=== PATIENT | male | born 1975 | race Caucasian/White ===

== ENCOUNTER 2017-05-20 19:53 | Inpatient (IN) | payer MEDICARE, MEDICAID ==
[~2017-05-20] VITALS: Ht 180.3 cm; Wt 180.2 kg
[~2017-05-20 19:53] MED LIST: CHOLESTEROL MED; GABA300C3 PO; INSULIN; LIDO5DIS35 TD; OXYC5 PO; VALA1TAB PO
[2017-05-20] MEDS ORDERED: IOHEXOL 350 MG/ML 10 ML VIAL (for RAD DIAG) IVCONTRAST ONE (19:54)
[2017-05-20 19:57] VITALS: BP 159/103; PULSE 122; RESP 22; TEMP 98.2; O2SAT 94
[2017-05-20] MEDS ORDERED: LANTINJ SQ (20:07)
--- NOTE | 2017-05-20 20:22 | PD ---
HPI Chief Complaint: Diabetic Time Seen by Provider: 20:15 Travel History International Travel<30 days: No Contact w/Intl Traveler<30days: No Traveled to known affect area: No History of Present Illness HPI Patient 42-year-old male presents emergency department for evaluation of shortness of breath over the past 4 days which rapidly worsened tonight. Patient has no history of blood clots in his legs or his chest, is a diabetic and smoker. 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 Patient states he is fine as long as he sits down but anytime he gets up he starts becoming significant short of breath. No chest pain no fevers no cough no congestion. Symptoms have rapidly worsened and are severe. PFSH Past Medical History Hx Anticoagulant Therapy: No Cardiovascular Problems: Yes (CHOL) High Cholesterol: Yes Diabetes: Yes (type 1 ) Patient Takes Glucophage: No Medical other: Yes (sleep apnea, varicose veins ) Tetanus Vaccination: Unknown Influenza Vaccination: No Past Surgical History Appendectomy: Yes (2001) Social History Alcohol Use: Yes (rarely ) Tobacco Use: No (quit 2 months ago ) Substance Use: No Allergies-Medications (Allergen,Severity, Reaction): Coded Allergies: amoxicillin (Unverified Allergy, Intermediate, Hives, 05/20/17) Reported Meds & Prescriptions Reported Meds & Active Scripts Active Reported Lantus Solostar Pen Inj (Insulin Glargine) 300 Unit/3 Ml Pen 1 Units SQ Review of Systems Except as stated in HPI: all other systems reviewed are Neg Physical Exam Narrative GENERAL: Well-developed, morbidly obese male who is tachycardic and tachypneic with increased work of breathing. SKIN: Focused skin assessment warm/dry. HEAD: Atraumatic. Normocephalic. EYES: Pupils equal and round. No scleral icterus. No injection or drainage. ENT: No nasal bleeding or discharge. Mucous membranes pink and moist. NECK: Trachea midline. No JVD. CARDIOVASCULAR: Regular rhythm with tachycardia. No murmur appreciated. RESPIRATORY: No accessory muscle use. Clear to auscultation. Breath sounds equal bilaterally. Tachypneic. GASTROINTESTINAL: Abdomen soft, non-tender, nondistended. Hepatic and splenic margins not palpable. MUSCULOSKELETAL: No obvious deformities. No clubbing. No cyanosis. No edema. NEUROLOGICAL: Awake and alert. No obvious cranial nerve deficits. Motor grossly within normal limits. Normal speech. PSYCHIATRIC: Appropriate mood and affect; insight and judgment normal. Data Data Last Documented VS Vital Signs Date Time Temp Pulse Resp B/P (MAP) Pulse Ox O2 Delivery O2 Flow Rate FiO2 05/20/17 21:28 98 Nasal Cannula 2.00 05/20/17 20:58 20 05/20/17 19:57 98.2 122 159/103 (121) Orders Orders Electrocardiogram (05/20/17 20:19) Ckmb (Isoenzyme) Profile (05/20/17 20:19) Complete Blood Count With Diff (05/20/17 20:19) Comprehensive Metabolic Panel (05/20/17 20:19) D-Dimer (05/20/17 20:19) Magnesium (Mg) (05/20/17 20:19) Prothrombin Time / Inr (Pt) (05/20/17 20:19) Act Partial Throm Time (Ptt) (05/20/17 20:19) Troponin I (05/20/17 20:19) Chest, Single Ap (05/20/17 20:19) Ecg Monitoring (05/20/17 20:19) Iv Access Insert/Monitor (05/20/17 20:19) Oximetry (05/20/17 20:19) Oxygen Administration (05/20/17 20:19) Sodium Chloride 0.9% Flush (Ns Flush) (05/20/17 20:30) Sodium Chlorid 0.9% 500 Ml Inj (Ns 500 M (05/20/17 20:30) Blood Gas Venous (Vbg) (05/20/17 20:19) Bedside Glucose JOHANNE.CSUGAR (05/20/17 20:19) CKMB (05/20/17 20:23) CKMB% (05/20/17 20:23) Aspirin Chew (Aspirin Chew) (05/20/17 21:15) Ct Pulmonary Angiogram (05/20/17 ) Heparin Inj (Heparin Inj) (05/20/17 21:15) Heparin-D5w 25,000 U/250 Ml (Heparin-D5w (05/20/17 21:15) Cbc No Diff, Includes Plts (05/23/17 06:00) Act Partial Throm Time (Ptt) (05/21/17 04:07) Occult Blood (Hemoccult) Stool (05/20/17 21:07) Iohexol 350 Inj (Omnipaque 350 Inj) (05/20/17 19:54) Alteplase Inj (Activase Inj) (05/20/17 22:00) Cbc No Diff, Includes Plts (05/21/17 05:00) Cbc No Diff, Includes Plts (05/22/17 05:00) Cbc No Diff, Includes Plts (05/23/17 05:00) Cbc No Diff, Includes Plts (05/24/17 05:00) Cbc No Diff, Includes Plts (05/25/17 05:00) Cbc No Diff, Includes Plts (05/26/17 05:00) Cbc No Diff, Includes Plts (05/27/17 05:00) Basic Metabolic Panel (Bmp) (05/21/17 05:00) Basic Metabolic Panel (Bmp) (05/22/17 05:00) Basic Metabolic Panel (Bmp) (05/23/17 05:00) Basic Metabolic Panel (Bmp) (05/24/17 05:00) Basic Metabolic Panel (Bmp) (05/25/17 05:00) Basic Metabolic Panel (Bmp) (05/26/17 05:00) Basic Metabolic Panel (Bmp) (05/27/17 05:00) Magnesium Oxide (Mag-Ox) (05/20/17 22:00) Magnesium Sulfate Inj (Magnesium Sulfate (05/20/17 22:00) Magnesium Sulfate Inj (Magnesium Sulfate (05/20/17 22:00) Potassium Chlor 20 Meq Premix (Kcl 20 Me (05/20/17 22:00) Potassium Chlor 20 Meq Premix (Kcl 20 Me (05/20/17 22:00) Potassium Chlor 40 Meq Premix (Kcl 40 Me (05/20/17 22:00) Potassium Chlor 40 Meq Premix (Kcl 40 Me (05/20/17 22:00) Potassium Phosphate (K-Phos) (05/20/17 22:00) Potassium Phosphate (K-Phos) (05/20/17 22:00) Potassium Phosphate Inj (Potassium Phosp (05/20/17 22:00) Sodium Phosphate Inj (Sodium Phosphate I (05/20/17 22:00) ^ Medication Admin Instruction (05/20/17 21:49) Notify Dr: Other (05/20/17 21:49) Inpatient Certification (05/20/17 21:49) Resp Ezpap/Pep Therapy (05/20/17 21:49) Resp Acapella/Pep/Chest Vibra (05/20/17 21:49) Resp Incentive Spirometry (05/20/17 21:49) Bedside Glucose JOHANNE.Q6H (05/20/17 21:49) Blood Glucose Goal (Criteria) (05/20/17 21:49) Hypoglycemia 51 - 69 Mg/Dl (05/20/17 21:49) Hypoglycemia 50 Mg/Dl Or < (05/20/17 21:49) Notify Dr: Other (05/20/17 21:49) Dextrose 50% In Libra (Vial) Inj (D50w (Vi (05/20/17 22:00) Insulin Human Reg Supp Scale (Novolin R (05/21/17 00:00) Neuro Checks JOHANNE.Q1H (05/20/17 21:49) Albuterol-Ipratropium Neb (Duoneb Neb) (05/20/17 22:00) Albuterol-Ipratropium Neb (Duoneb Neb) (05/20/17 22:00) Code Status (05/20/17 21:49) Vital Signs (Adult) JOHANNE.Q1H (05/20/17 21:49) Activity Bed Rest (05/20/17 21:49) Elevate Head Of Bed (05/20/17 21:49) Diet Heart Healthy (05/21/17 Breakfast) Famotidine Inj (Pepcid Inj) (05/21/17 09:00) Ondansetron Inj (Zofran Inj) (05/20/17 22:00) Troponin I (05/21/17 03:00) Troponin I (05/21/17 09:00) Troponin I (05/21/17 15:00) Echo 2d Comp With Doppler (05/20/17 21:49) Scd Bilateral/Knee High JOHANNE.BID (05/20/17 21:49) Pharmacologic Contraindication (05/20/17 21:49) ^ Initiate Protocol (05/20/17 21:49) Instruction (05/20/17 21:49) Misc Nursing Information (05/20/17 22:00) Chlorhexidine 2% Cloth (Chlorhexidine 2% (05/21/17 04:00) Chlorhexidine 2% Cloth (Chlorhexidine 2% (05/20/17 22:00) Mrsa Pcr Surveillance (05/20/17 21:49) Docusate Sodium-Senna (Rukhsana-Colace) (05/21/17 09:00) Admit Order (Ed Use Only) (05/20/17 ) Labs Laboratory Tests Test 05/20/17 20:23 05/20/17 20:30 White Blood Count 16.2 TH/MM3 Red Blood Count 5.68 MIL/MM3 Hemoglobin 15.4 GM/DL Hematocrit 47.0 % Mean Corpuscular Volume 82.7 FL Mean Corpuscular Hemoglobin 27.1 PG Mean Corpuscular Hemoglobin Concent 32.8 % Red Cell Distribution Width 12.4 % Platelet Count 145 TH/MM3 Mean Platelet Volume 9.6 FL Neutrophils (%) (Auto) 67.5 % Lymphocytes (%) (Auto) 22.9 % Monocytes (%) (Auto) 7.4 % Eosinophils (%) (Auto) 1.4 % Basophils (%) (Auto) 0.8 % Neutrophils # (Auto) 11.0 TH/MM3 Lymphocytes # (Auto) 3.7 TH/MM3 Monocytes # (Auto) 1.2 TH/MM3 Eosinophils # (Auto) 0.2 TH/MM3 Basophils # (Auto) 0.1 TH/MM3 CBC Comment AUTO DIFF Differential Comment AUTO DIFF CONFIRMED Platelet Estimate LOW Platelet Morphology Comment NORMAL Red Cell Morphology Comment NORMAL Prothrombin Time 11.9 SEC Prothromb Time International Ratio 1.1 RATIO Activated Partial Thromboplast Time 27.5 SEC D-Dimer Quantitative (PE/DVT) 17.96 MG/L FEU Blood Urea Nitrogen 16 MG/DL Creatinine 0.69 MG/DL Random Glucose 257 MG/DL Total Protein 7.8 GM/DL Albumin 3.5 GM/DL Calcium Level 8.9 MG/DL Magnesium Level 1.9 MG/DL Alkaline Phosphatase 84 U/L Aspartate Amino Transf (AST/SGOT) 37 U/L Alanine Aminotransferase (ALT/SGPT) 50 U/L Total Bilirubin 0.4 MG/DL Sodium Level 137 MEQ/L Potassium Level 3.8 MEQ/L Chloride Level 103 MEQ/L Carbon Dioxide Level 22.4 MEQ/L Anion Gap 12 MEQ/L Estimat Glomerular Filtration Rate 126 ML/MIN Total Creatine Kinase 141 U/L Creatine Kinase MB 7.9 NG/ML Troponin I 1.63 NG/ML Blood Gas Puncture Site R WRIST Blood Gas Patient Temperature 98.6 Venous Blood pH 7.48 Venous Blood Partial Pressure CO2 32 mmHg Venous Blood Partial Pressure O2 64 mmHg Venous Blood HCO3 23 mmol/L Venous Blood Oxygen Saturation 89 % Venous Blood Oxygen Content 20.0 Vol % Venous Blood Base Excess 0.1 mmol/L Blood Gas Inspired Oxygen 21 % MDM Medical Decision Making Medical Screen Exam Complete: Yes Emergency Medical Condition: Yes Interpretation(s) EKG shows sinus tachycardia rate of 118, there is an S1 every 3 T3 pattern consistent with right heart strain, no concerning ST segment elevations. Intervals otherwise within normal limits. This is an abnormal EKG. Differential Diagnosis PE, ACS, AMI, pneumonia, CHF, Narrative Course Patient roomed in emergency department, clearly tachycardic and tachypneic and given his weight as well as a smoking history PE was given high consideration. D-dimer significantly positive with positive troponin to 1.63. Patient underwent CT PE protocol which does show mainstem left-sided pulmonary embolism , there is also significant clot burden in the proximal portion of the right posterior segment. This was discussed with radiology contact center consultant and they can offer no intervention for him at this time. According to Dr. Owens there is significant right heart strain as well this coincides with his EKG. The patient was immediately discussed with Dr. Knox who recommends that the patient bwe given 50 mg of TPA over an hour despite having 6000 units of heparin already. He recommends discontinuing the Heparin Drip and possibly resuming after TPA finished. I agree with Dr. Knox that while this patient is hemodynamically stable at this time given his massive pulmonary vasculature clots with right heart strain visible on EKG as well as CT as well as his positive troponin he is at high risk of decompensation in the immediate future. I had discussed all the risks benefits complications and alternatives of the recommended regimen of TPA. All of their questions were answered The patient and his mother verbalized understanding and consented. Patient's mother informed me that she called her sister and she apparently has papers at home to be his power of contract attorney for healthcare decision making. Unfortunately she does not have his paperwork on her. I have therefore asked both her and the patient to sign the paperwork and they were able to do so. [facility] has been called to transport the patient to [facility] where Dr. Knox will assume care and possibly restart heparin drip after TPA has been given. RN rider will accompany patient. TPA is being started at 1040, EMSs arrived to transport the patient to [facility]. Procedures Procedure Narrative Aggregate critical care time was 65 minutes. Time to perform other separately billable procedures was not included in the critical care time. My time did not include minutes spent treating any other patients simultaneously or on activities that did not directly contribute to the patient's treatment. The services I provided to this patient were to treat and/or prevent clinically significant deterioration that could result in: , disability, organ failure, I provided critical care services requiring my management, as noted below: Chart data review, documentation time, medication orders and management, vital sign assessments/reviewing monitor data, ordering and reviewing lab tests, ordering and interpreting/reviewing x-rays and diagnostic studies, care of the patient and discussion of the patient with the admitting physicians. Diagnosis Primary Impression: Pulmonary embolism Admitting Information Admitting Physician Requests: Admit Condition: Critical Lionel Fraser MD May 20, 2017 20:22
[2017-05-20 20:24] VITALS: O2SAT 95
[2017-05-20 20:29] LABS: BASOPHIL # 0.1 TH/MM3 (0-0.2); BASOPHIL % 0.8 % (0.0-2.0); EOSINOPHIL # 0.2 TH/MM3 (0-0.4); EOSINOPHIL % 1.4 % (0.0-4.0); LYMPH % 22.9 % (9.0-44.0); LYMPHOCYTE # 3.7 TH/MM3 (1.0-4.8); MEAN CELL VOLUME 82.7 FL (80.0-100.0); MEAN CORPUSCULAR HEMOGLOBIN 27.1 PG (27.0-34.0); MEAN CORPUSCULAR HGB CONC 32.8 % (32.0-36.0); MONO % 7.4 % (0.0-8.0); NEUT % 67.5 % (16.0-70.0); PLATELET COUNT 145 TH/MM3 (150-450); RED BLOOD COUNT 5.68 MIL/MM3 (4.50-5.90); RED CELL DISTRIBUTION WIDTH 12.4 % (11.6-17.2); WHITE BLOOD COUNT 16.2 TH/MM3 (4.0-11.0)
[2017-05-20] MEDS ORDERED: SODIUM CHLORID 0.9% 500 ML INJ 500 ML IV ONE (20:30)
[2017-05-20 20:32] LABS: HEMO FLAGS AUTO DIFF
[2017-05-20 20:39] LABS: CHLORIDE 103 MEQ/L (98-107); POTASSIUM 3.8 MEQ/L (3.5-5.1); SODIUM (NA) 137 MEQ/L (136-145)
[2017-05-20 20:42] LABS: ANION GAP 12 MEQ/L (5-15); BICARBONATE 22.4 MEQ/L (21.0-32.0)
[2017-05-20 20:43] LABS: BLOOD UREA NITROGEN 16 MG/DL (7-18); MAGNESIUM 1.9 MG/DL (1.5-2.5)
[2017-05-20 20:44] LABS: BLOOD GAS VENOUS BASE EXCESS 0.1 mmol/L (-2-2); BLOOD GAS VENOUS HCO3 23 mmol/L (22-26); BLOOD GAS VENOUS O2 HGB SAT 89 % (70-76); BLOOD GAS VENOUS PCO2 32 mmHg (44-48); BLOOD GAS VENOUS PO2 64 mmHg (35-40); BLOOD GAS VENOUS pH 7.48 (7.360-7.400); TEMP CORR TO 98.6
[2017-05-20 20:45] LABS: CRITICAL VALUE NO; DRAW SITE R WRIST; FIO2 21 %; STAT YES
[2017-05-20 20:45] LABS: ALT (GPT) 50 U/L (12-78)
[2017-05-20 20:46] LABS: AST (GOT) 37 U/L (15-37); GLOMERULAR FILTRATION RATE 126 ML/MIN (>89)
[2017-05-20 20:47] LABS: TOTAL BILIRUBIN ADULT 0.4 MG/DL (0.2-1.0)
[2017-05-20 20:48] LABS: ALKALINE PHOSPHATASE 84 U/L (45-117); CREATINE KINASE 141 U/L (39-308)
[2017-05-20 20:50] LABS: PLATELET ESTIMATE SMEAR LOW (NORMAL); PLATELET MORPHOLOGY NORMAL (NORMAL); SCAN/DIFF AUTO DIFF CONFIRMED
[2017-05-20 20:53] LABS: APTT (PATIENT) 27.5 SEC (24.3-30.1); INTERNATIONAL NORMALIZED RATIO 1.1 RATIO; PROTHROMBIN TIME - PATIENT 11.9 SEC (9.8-11.6)
[2017-05-20 21:00] LABS: CKMB 7.9 NG/ML (0.5-3.6)
[2017-05-20] MEDS ORDERED: ASPIRIN 81 MG CHEW TAB CHEW ONE (21:15)
[2017-05-20] MEDS ORDERED: HEPARIN SODIUM - IV 10,000 UNITS/10 ML VIAL IV ONE (21:15)
[2017-05-20] MEDS: HEPARIN-D5W 25,000 U/250 ML 250 ML IV PRN (21:18)
[2017-05-20] MEDS ORDERED: CHLORHEXIDINE GLUCONATE 2 % 1 PACK (2 CLOTHS) TOP PRN (22:00)
[2017-05-20] MEDS ORDERED: DEXTROSE 50% IN WATER 50 ML VIAL(D50) IV PUSH PRN (22:00)
[2017-05-20] MEDS ORDERED: POTASSIUM PHOSPHATE MONOBASIC 500 MG TAB PO PRN (22:00)
[2017-05-20] MEDS ORDERED: RESP: ALBUTEROL 2.5 MG/IPRATROPIUM 0.5 MG NEB (PRN) INH (22:00)
[2017-05-20] MEDS ORDERED: ONDANSETRON HCL 4 MG/2 ML VIAL IV PUSH PRN (22:00)
[2017-05-20] MEDS ORDERED: POTASSIUM CHLOR 40 MEQ PREMIX 100 ML IV PRN ×2 (22:00)
[2017-05-20] MEDS ORDERED: POTASSIUM CHLOR 20 MEQ PREMIX 100 ML IV PRN ×2 (22:00)
[2017-05-20] MEDS ORDERED: MISCELLANEOUS NURSING INFORMATION XX SCH (22:00)
[2017-05-20] MEDS ORDERED: MAGNESIUM SULFATE INJ 2 GM in SODIUM CHLORIDE 0.9% INJ 96 ML IV PRN (22:00)
[2017-05-20] MEDS ORDERED: POTASSIUM PHOSPHATE MONOBASIC 500 MG TAB PO/TUBE PRN (22:00)
[2017-05-20] MEDS ORDERED: POTASSIUM PHOSPHATE INJ 30 MMOL in SODIUM CHLOR 0.9% 250 ML INJ 250 ML IV PRN (22:00)
[2017-05-20] MEDS ORDERED: ALTEPLASE RECOMBINANT 100 MG VIAL IV ONE (22:00)
[2017-05-20] MEDS ORDERED: MAGNESIUM OXIDE 400 MG TAB PO PRN (22:00)
[2017-05-20] MEDS ORDERED: MAGNESIUM SULFATE INJ 4 GM in SODIUM CHLORIDE 0.9% INJ 92 ML IV PRN (22:00)
[2017-05-20] MEDS ORDERED: SODIUM PHOSPHATE INJ 30 MMOL in SODIUM CHLOR 0.9% 250 ML INJ 240 ML IV PRN (22:00)
--- NOTE | 2017-05-20 22:00 | RADRPT ---
EXAM DATE/TIME: 05/20/2017 21:36 [facility] COMPARISON: No previous studies available for comparison. INDICATIONS : Shortness of breath IV CONTRAST: 75 cc Omnipaque 350 (iohexol) IV RADIATION DOSE: 21.78 CTDIvol (mGy) ; Patient body habitus MEDICAL HISTORY : Diabetes mellitus type 1. SURGICAL HISTORY : None. ENCOUNTER: Initial ACUITY: 2 days PAIN SCALE: 6/10 LOCATION: chest TECHNIQUE: Volumetric scanning of the chest was performed using a pulmonary embolism protocol MIP images were re constructed. Using automated exposure control and adjustment of the mA and/or kV according to patien t size, radiation dose was kept as low as reasonably achievable to obtain optimal diagnostic quality images. DICOM format image data is available electronically for review and comparison. Follow-up recommendations for detected pulmonary nodules are based at a minimum on nodule size and pa tient risk factors according to Fleischner Society Guidelines. FINDINGS: Large bilateral central pulmonary emboli are demonstrated. There is some leftward bowing of the inter ventricular septum of the heart suggesting the possibility of right ventricular strain. The lungs are clear. No pleural effusion. No pneumothorax. Liver appears fatty infiltrated. Probable short segment atherosclerotic calcification of the left circumflex coronary artery, ser ies 3 image 56. CONCLUSION: Massive bilateral pulmonary emboli with associated right ventricular strain. Findings discussed with Dr. Fraser by phone. Van Owens MD on May 20, 2017 at 21:53 Board Certified Radiologist. This report was verified electronically.
--- NOTE | 2017-05-20 22:07 | RADRPT ---
EXAM DATE/TIME: 05/20/2017 21:56 [facility] COMPARISON: CT PULMONARY ANGIOGRAM, May 20, 2017, 21:36. INDICATIONS : Chest pain and short of breath since this evening. MEDICAL HISTORY : None. SURGICAL HISTORY : None. ENCOUNTER: Initial ACUITY: 1 day PAIN SCORE: 2/10 LOCATION: Bilateral chest FINDINGS: A single view of the chest demonstrates the lungs to be symmetrically aerated without evidence of mas s, infiltrate or effusion. The cardiomediastinal contours are unremarkable. Osseous structures are intact. CONCLUSION: Clear lungs. Van Owens MD on May 20, 2017 at 22:05 Board Certified Radiologist. This report was verified electronically.
[2017-05-20 22:15] VITALS: O2SAT 97
[2017-05-20] MEDS: RESP: ALBUTEROL 2.5 MG/IPRATROPIUM 0.5 MG NEB (SCH) INH (22:17)
[2017-05-20 22:31] VITALS: BP 137/74
--- NOTE | 2017-05-20 23:54 | HHI.HP ---
[facility] Service Critical Care Medicine Primary Care Physician Vamsi Naranjo D.O. Admission Diagnosis Pulmonary Embolism Diagnosis: Chief Complaint: shortness of breath Travel History International Travel<30 Days: No Contact w/Intl Traveler <30 Da: No Traveled to Known Affected Are: No History of Present Illness This is a 42yM with history of IDDM and morbid obesity who presents to the ER with complaints of worsening SOB today. He does state that possibly his dyspnea started a few days ago, but acutely became worse today. Denies chest pain, fever , chills, sputum production. does still actively smoke. No other associated symptoms. He endorses, along with his mother at bedside, that he spends most of his night laying sedentary on his couch, and sleeps most of the day, so he is very inactive and spends long hours immobilized. In the ER was found to have near-saddle pulmonary embolism with EKG evidence of RV strain along with elevated biomarkers for cardiac strain. After a discussion with the patient, Dr. Fraser in the ER and myself, decision to give TPA for Submassive PE and the patient was emergently transferred to the [facility]. Review of Systems Constitutional: DENIES: Diaphoretic episodes, Fatigue, Fever, Chills, Dizziness Respiratory: DENIES: Cough, Snoring, Wheezing, Hemoptysis, Sputum production, Shortness of breath Cardiovascular: DENIES: Chest pain, Palpitations, Syncope, Dyspnea on Exertion , Lower Extremity Edema Gastrointestinal: DENIES: Abdominal pain, Black stools, Bloody stools, Constipation, Diarrhea, Nausea, Vomiting Hematologic/lymphatic: DENIES: Bruising Neurologic: DENIES: Headache Past Family Social History Allergies: Coded Allergies: amoxicillin (Unverified Allergy, Intermediate, Hives, 05/20/17) Past Medical History Hypercholesterolemia Type I DM Sleep Apnea Varicose Veins Past Surgical History Appendectomy in 2001 Reported Medications Lantus Solostar Pen Inj (Insulin Glargine) 300 Unit/3 Ml Pen 1 Units SQ Active Ordered Medications See MAR Family History no family history of blood clots. Social History Still actively smoking per patient and mother. rare etoh use. Physical Exam Vital Signs Vital Signs Date Time Temp Pulse Resp B/P (MAP) Pulse Ox O2 Delivery O2 Flow Rate FiO2 05/20/17 22:31 108 20 137/74 (95) 98 Nasal Cannula 2.00 05/20/17 22:15 97 Nasal Cannula 2.00 05/20/17 21:28 98 Nasal Cannula 2.00 05/20/17 20:58 20 96 Room Air 05/20/17 20:57 96 Room Air 05/20/17 20:24 95 Room Air 05/20/17 19:57 98.2 122 22 159/103 (121) 94 Physical Exam GENERAL: Morbidly obese male, lying in bed, distress due to dyspnea HEENT: Normocephalic. Atraumatic. Pupils equal, round, reactive, conjugate. Mucous membranes are moist NECK: Trachea is midline. Unable to assess JVD due to large neck circumference CHEST: Tachypneic. Labored. Oxygen by nasal cannula CARDIOVASCULAR: Tachycardic rate, regular rhythm. Sinus by telemetry ABDOMEN: Soft, nontender, nondistended. No guarding. MUSCULOSKELETAL: Pulses 2+. No peripheral edema. NEUROLOGICAL: RASS 0. CAM -. GCS 15. No gross focal deficits. Laboratory Laboratory Tests Test 05/20/17 20:23 05/20/17 20:30 White Blood Count 16.2 Red Blood Count 5.68 Hemoglobin 15.4 Hematocrit 47.0 Mean Corpuscular Volume 82.7 Mean Corpuscular Hemoglobin 27.1 Mean Corpuscular Hemoglobin Concent 32.8 Red Cell Distribution Width 12.4 Platelet Count 145 Mean Platelet Volume 9.6 Neutrophils (%) (Auto) 67.5 Lymphocytes (%) (Auto) 22.9 Monocytes (%) (Auto) 7.4 Eosinophils (%) (Auto) 1.4 Basophils (%) (Auto) 0.8 Neutrophils # (Auto) 11.0 Lymphocytes # (Auto) 3.7 Monocytes # (Auto) 1.2 Eosinophils # (Auto) 0.2 Basophils # (Auto) 0.1 CBC Comment AUTO DIFF Differential Comment AUTO DIFF CONFIRMED Platelet Estimate LOW Platelet Morphology Comment NORMAL Red Cell Morphology Comment NORMAL Prothrombin Time 11.9 Prothromb Time International Ratio 1.1 Activated Partial Thromboplast Time 27.5 D-Dimer Quantitative (PE/DVT) 17.96 Blood Urea Nitrogen 16 Creatinine 0.69 Random Glucose 257 Total Protein 7.8 Albumin 3.5 Calcium Level 8.9 Magnesium Level 1.9 Alkaline Phosphatase 84 Aspartate Amino Transf (AST/SGOT) 37 Alanine Aminotransferase (ALT/SGPT) 50 Total Bilirubin 0.4 Sodium Level 137 Potassium Level 3.8 Chloride Level 103 Carbon Dioxide Level 22.4 Anion Gap 12 Estimat Glomerular Filtration Rate 126 Total Creatine Kinase 141 Creatine Kinase MB 7.9 Troponin I 1.63 Blood Gas Puncture Site R WRIST Blood Gas Patient Temperature 98.6 Venous Blood pH 7.48 Venous Blood Partial Pressure CO2 32 Venous Blood Partial Pressure O2 64 Venous Blood HCO3 23 Venous Blood Oxygen Saturation 89 Venous Blood Oxygen Content 20.0 Venous Blood Base Excess 0.1 Blood Gas Inspired Oxygen 21 Result Diagram: 05/20/17202205/20/172022 Imaging Last Impressions Chest X-Ray 05/20/172018 Signed Impressions: Service Date/Time: April 21:56 - CONCLUSION: Clear lungs. Van Owens MD CT Angiography 05/20/17 0000 Signed Impressions: Service Date/Time: April 21:36 - CONCLUSION: Massive bilateral pulmonary emboli with associated right ventricular strain. Findings discussed with Dr. Fraser by phone. Van Owens MD Capdarricki VTE Risk Assessment Caprini VTE Risk Assessment: Mod/High Risk (score >= 2) Caprini Risk Assessment Model Point Value = 1 Point Value = 2 Point Value = 3 Point Value = 5 Age 41-60 Minor surgery BMI > 25 kg/m2 Swollen legs Varicose veins or History of unexplained or recurrent spontaneous Oral contraceptives or hormone replacement Sepsis (< 1 month) Serious lung disease, including pneumonia (< 1 month) Abnormal pulmonary function Acute myocardial infarction Congestive heart failure (< 1 month) History of inflammatory bowel disease Medical patient at bed rest Age 61-74 Arthroscopic surgery Major open surgery (> 45 min) Laparoscopic surgery (> 45 min) Malignancy Confined to bed (> 72 hours) Immobilizing plaster cast Central venous access Age >= 75 History of VTE Family history of VTE Factor V Leiden Prothrombin [id number] Lupus anticoagulant Anticardiolipin antibodies Elevated serum homocysteine Heparin-induced thrombocytopenia Other congenital or acquired thrombophilia Stroke (< 1 month) Elective arthroplasty Hip, pelvis, or leg fracture Acute spinal cord injury (< 1 month) Prophylaxis Regimen Total Risk Factor Score Risk Level Prophylaxis Regimen 0-1 Low Early ambulation 2 Moderate Order ONE of the following: *Sequential Compression Device (SCD) *Heparin 5000 units SQ BID 3-4 Higher Order ONE of the following medications: *Heparin 5000 units SQ TID *Enoxaparin/Lovenox 40 mg SQ daily (WT < 150 kg, CrCl > 30 mL/min) *Enoxaparin/Lovenox 30 mg SQ daily (WT < 150 kg, CrCl > 10-29 mL/min) *Enoxaparin/Lovenox 30 mg SQ BID (WT < 150 kg, CrCl > 30 mL/min) AND/OR *Sequential Compression Device (SCD) 5 or more Highest Order ONE of the following medications: *Heparin 5000 units SQ TID (Preferred with Epidurals) *Enoxaparin/Lovenox 40 mg SQ daily (WT < 150 kg, CrCl > 30 mL/min) *Enoxaparin/Lovenox 30 mg SQ daily (WT < 150 kg, CrCl > 10-29 mL/min) *Enoxaparin/Lovenox 30 mg SQ BID (WT < 150 kg, CrCl > 30 mL/min) AND *Sequential Compression Device (SCD) Assessment and Plan Assessment and Plan Assessment: 42-year-old morbidly obese male with venous thromboembolism risks of obesity and sedentary lifestyle who presents with submassive pulmonary embolism with evidence of RV strain. 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 We'll continue heparin drip after infusion of TPA. Have ordered 2-D echo to eval for RV strain. Will need a minimum of 6 months of anticoagulation, but given his risk factors, he will likely be at risk for long-term thromboembolisms and may need longer course of anticoagulation. For now he remains critically ill with a high risk of sudden cardiac and mortality. Active Problems: Acute Submassive Pulmonary Embolism Acute Right Heart Dysfunction Acute hypoxic Respiratory Failure Plan: - admit to ICU - s/p 50mg iv TPA - heparin drip, no bolus - 2d echo - frequent neuro checks - trend troponins until downtrending - unlikely to be ACS: RV strain and EKG as well as biomarkers all consistent with acute submassive PE. - would be a good candidate for NOAC therapy once stable. - wean o2 by NC for goal spo2 > 90% - heart healthy diet as tolerated - takes 35 units Lantus at home. currently glucose well-controlled. will start on 20 units SQ Levemir with q6h med scale SSI - SCDs, heparin drip, pepcid. This patient remains critically ill with one or more organ systems which are or may become a threat to life. I have spent in excess of 52 minutes discontinuously in the care and management of this patient. This time is exclusive of procedures, and includes, but is not limited to, evaluation of the patient, review of the medical record, discussions with family, consultants, nursing staff, or respiratory therapy, and documentation in the medical record. Code Status Full Code Discussed Condition With Patient, mother at bedside, Narinder Butterfield MD May 20, 2017 23:54
[2017-05-21] VITALS (15 sets, daily range): BP systolic 124–160; BP diastolic 60–83; PULSE 86–120; RESP 17–27; TEMP 97.8–98.7; O2SAT 95–97
[2017-05-21] MEDS: HEPARIN-D5W 25,000 U/250 ML 250 ML IV PRN ×3 (00:15→23:56)
[2017-05-21] MEDS: INSULIN NovoLIN REGULAR SUPPLEMENTAL SCALE SQ SCH ×5 (01:00→23:48)
[2017-05-21] MEDS: RESP: ALBUTEROL 2.5 MG/IPRATROPIUM 0.5 MG NEB (SCH) INH ×4 (03:27→20:36)
[2017-05-21] MEDS: CHLORHEXIDINE GLUCONATE 2 % 1 PACK (2 CLOTHS) TOP SCH (04:00)
[2017-05-21 05:10] LABS: HEMATOCRIT 43.3 % (39.0-51.0); MEAN CORPUSCULAR HEMOGLOBIN 28.3 PG (27.0-34.0); MEAN CORPUSCULAR HGB CONC 33.7 % (32.0-36.0); PLATELET COUNT 132 TH/MM3 (150-450); RED BLOOD COUNT 5.16 MIL/MM3 (4.50-5.90); RED CELL DISTRIBUTION WIDTH 13.2 % (11.6-17.2); REVIEW FLAG FINAL; WHITE BLOOD COUNT 12.9 TH/MM3 (4.0-11.0)
[2017-05-21 05:17] LABS: APTT (PATIENT) 35.8 SEC (24.3-30.1)
[2017-05-21 05:22] LABS: BICARBONATE 26.1 MEQ/L (21.0-32.0); POTASSIUM 3.5 MEQ/L (3.5-5.1)
--- NOTE | 2017-05-21 07:59 | HHI.CCPN ---
Subjective Remarks/Hospital Course This is a 42yM with history of IDDM and morbid obesity who presents to the ER with complaints of worsening SOB today. He does state that possibly his dyspnea started a few days ago, but acutely became worse today. Denies chest pain, fever , chills, sputum production. does still actively smoke. No other associated symptoms. He endorses, along with his mother at bedside, that he spends most of his night laying sedentary on his couch, and sleeps most of the day, so he is very inactive and spends long hours immobilized. In the ER was found to have near-saddle pulmonary embolism with EKG evidence of RV strain along with elevated biomarkers for cardiac strain. After a discussion with the patient, Dr. Fraser in the ER and myself, decision to give TPA for Submassive PE and the patient was emergently transferred to the [facility]. SUBJ 05/21/17: Status post TPA for submassive PE/saddle emboli. Currently on heparin. Denies chest pain. Good oxygen saturation. Objective Vital Signs Date Time Temp Pulse Resp B/P (MAP) Pulse Ox O2 Delivery O2 Flow Rate FiO2 05/21/17 07:00 97 Nasal Cannula 2.00 05/21/17 06:00 88 05/21/17 04:00 98.1 24 130/82 (98) Intake and Output 05/21/17 05/21/17 05/22/17 08:00 16:00 00:00 Intake Total 321 ml Output Total 400 ml Balance -79 ml Result Diagram: 05/21/17 0442 05/21/17 0442 Other Results Laboratory Tests Test 05/20/17 20:30 Blood Gas Puncture Site R WRIST Blood Gas Patient Temperature 98.6 Venous Blood pH 7.48 (7.360-7.400) Venous Blood Partial Pressure CO2 32 mmHg (44-48) Venous Blood Partial Pressure O2 64 mmHg (35-40) Venous Blood HCO3 23 mmol/L (22-26) Venous Blood Oxygen Saturation 89 % (70-76) Venous Blood Oxygen Content 20.0 Vol % (9.0-17.0) Venous Blood Base Excess 0.1 mmol/L (-2-2) Blood Gas Inspired Oxygen 21 % Imaging Last Impressions Chest X-Ray 05/20/17 2019 Signed Impressions: Service Date/Time: April 21:56 - CONCLUSION: Clear lungs. Van Owens MD CT Angiography 05/20/17 0000 Signed Impressions: Service Date/Time: April 21:36 - CONCLUSION: Massive bilateral pulmonary emboli with associated right ventricular strain. Findings discussed with Dr. Fraser by phone. Van Owens MD Objective Remarks GENERAL: Morbidly obese male, lying in bed, distress due to dyspnea HEENT: Normocephalic. Atraumatic. Pupils equal, round, reactive, conjugate. Mucous membranes are moist NECK: Trachea is midline. Unable to assess JVD due to large neck circumference CHEST: Tachypneic. Labored. Oxygen by nasal cannula CARDIOVASCULAR: Tachycardic rate, regular rhythm. Sinus by telemetry ABDOMEN: Soft, nontender, nondistended. No guarding. MUSCULOSKELETAL: Pulses 2+. No peripheral edema. NEUROLOGICAL: AOx3 No gross focal deficits. A/P Assessment and Plan Assessment: 42-year-old morbidly obese male with venous thromboembolism risks of obesity and sedentary lifestyle who presents with submassive pulmonary embolism with evidence of RV strain. s/p 50 mg IV TPA. We'll continue heparin drip after infusion of TPA. Have ordered 2-D echo to eval for RV strain. Will need for long-term thromboembolisms most likely. Active Problems: Acute Submassive Pulmonary Embolism Acute Right Heart Dysfunction Acute hypoxic Respiratory Failure Type 1 diabetes on insulin Plan: - Continue ICU for 24 hours, transfer to [facility] after 24 hours if stable - s/p 50mg iv TPA - heparin drip, no bolus - 2d echo pending - frequent neuro checks - trend troponins until downtrending - unlikely to be ACS: RV strain and EKG as well as biomarkers all consistent with acute submassive PE. - would be a good candidate for NOAC therapy once stable. Start oral anticoagulation in 24 hours (Heparin can be stopped after administration of NOAC ) - Get pulmonary input - wean o2 by [place] for goal spo2 > 90% - heart healthy diet as tolerated - takes 35 units Lantus at home. currently glucose well-controlled. will start on 20 units SQ Levemir with q6h med scale SSI - SCDs, heparin drip, pepcid. This patient remains critically ill with one or more organ systems which are or may become a threat to life. Level 3 Consult [facility] to assume care in am Transfer to [facility] in next 24 hours Julia Araujo MD May 21, 2017 07:59
[2017-05-21] MEDS: FAMOTIDINE 20 MG/2 ML VIAL IV PUSH SCH ×2 (08:22→20:28)
[2017-05-21] MEDS: DOCUSATE SODIUM 50 MG/SENNA 8.6 MG TAB PO SCH ×2 (08:23→20:28)
[2017-05-21 11:30] LABS: APTT (PATIENT) 34.9 SEC (24.3-30.1)
--- NOTE | 2017-05-21 16:37 | EKG ---
Date Performed: 05/20/2017 Time Performed: 20:26:14 PTAGE: 42 years EKG: SINUS TACHYCARDIA POSSIBLE RIGHT VENTRICULAR CONDUCTION DELAY NONSPECIFIC T-WAVE ABNORMALIT Y ABNORMAL RHYTHM ECG Since PREVIOUS TRACING , no significant change noted PREVIOUS TRACIN03/30/2016 10.57 DOCTOR: Roberta Sanchez Interpretating Date/Time 05/21/2017 16:37:41
[2017-05-21 17:40] LABS: APTT (PATIENT) 44.9 SEC (24.3-30.1)
--- NOTE | 2017-05-21 18:11 | MB ---
cc: Corky RAY DATE OF CONSULTATION: 05/21/2017. HISTORY OF PRESENT ILLNESS: Mr. Corrigan is a 42-year-old white male with 5-year history of insulin dependent diabetes, obesity, sedentary lifestyle who presents with increasing shortness of breath and chest pressure. CTA on admission in the ER revealed large bilateral pulmonary emboli with clinical indication of right ventricular strain as well as EKG changes. He was transferred to the intensive care unit. Critical care saw him and gave him fibrinolytics and he is now on heparin infusion. I spoke to Dr. Julia Araujo today. The patient is awake and alert and says that he feels much better since his arrival yesterday. He has not had previous history of thromboembolic disease. Risk factors include obesity and extremely sedentary lifestyle apparently he is not out of the house much. He does have a learning disorder. He lives with his mother and has never . He does smoke one to two packs of cigarettes a day. Drinks occasional beer but not to excess. PAST MEDICAL HISTORY: 1. Obstructive sleep apnea for probably five to six years. He has a C-PAP machine which is broken and he has not been using it. No formal diagnosis of COPD. 2. He had an appendectomy at 20. SOCIAL HISTORY: As noted above, smoking, alcohol. Lives at home with his mother. They have a dog at home but no other usual animal exposures. He denies any type of illicit drug use. REVIEW OF SYSTEMS: He presented with chest pressure and shortness of breath. He has had no increased swelling in his legs. He does have regular medical follow-up through Dr. [facility]aran[facility] medical clinic. OUTPATIENT MEDICATIONS: Insulin. Current medications reviewed in the EMR. ALLERGIES: Amoxicillin. PHYSICAL EXAMINATION: GENERAL: A very obese white male in no distress at rest. VITAL SIGNS: Afebrile, heart rate 90, blood pressure 140/70, respirations 18-22 and saturations 96% on 2 liters. HEAD, EYES, EARS, NOSE, THROAT: Sclerae anicteric. NECK: Neck veins are not distended although it is quite large. No adenopathy in the neck. CHEST: His chest is quite clear. No wheezes or rales. HEART: His heart is regular. No harsh murmur. ABDOMEN: Abdomen is very obese. EXTREMITIES: No significant peripheral edema or calf tenderness. No cyanosis. LABORATORY DATA: White count is 12,000. Blood gas on presentation: pO2 64, pH 7.40, pCO2 32 and that was on room air. Hemoglobin is 14. INR is currently 35; Heparin is being adjusted. Troponin was high on presentation. CK-MB was 7.9, again suggesting right ventricular strain. No echocardiogram at this point has been done. CTA noted above. Electrolytes are normal. BUN and creatinine 17 and 0.63. D-dimer was markedly elevated at 17.96. ASSESSMENT: Mr. Corrigan presents with massive pulmonary embolism currently stable on IV heparin infusion after tPA. Risk factors seem to be his obesity and extremely sedentary lifestyle. I reviewed with critical care. I will order Dopplers of his legs. Will continue the current management. I have spoken to the patient very clearly about the importance of lifestyle change including stopping smoking and mobilizing himself once he is out of the hospital. There may be an indication in light of the severity of this presentation without other obvious risk factors for him to have a hematology evaluation for thrombophilia that can be done as an outpatient post discharge. Further diagnostic and/or therapeutic intervention will depend on his ongoing clinical course and response to therapy. R. MD SWETA Taylor/SAMANTA /4:06 PM /5:54 PM
--- NOTE | 2017-05-21 18:15 | ECHRPT ---
Indication: PULMONARY EMBOLISM CONCLUSIONS The left ventricular systolic function is normal with an estimated ejection fraction in the range of 55-60%. Moderate concentric left ventricular hypertrophy. There is a flattened septum in systole consistent with right ventricle pressure overload. The right ventricle is severely dilated. The right ventricular systoilc function is moderately decreased. Questionable echodensity noted along the RV free wall but not well seen, possible moderator band, cl inical correlation as possible Trace mitral valve regurgitation. Mild tricuspid valve stenosis. BP: 130 / 82 HR: 98 Rhythm: Sinus MEASUREMENTS (Male / Female) Normal Values Technical Quality:Technically difficult study 2D ECHO LV Diastolic Diameter PLAX 4.6 cm 4.2 - 5.9 / 3.9 - 5.3 cm LV Systolic Diameter PLAX 3.1 cm IVS Diastolic Thickness 1.5 cm 0.6 - 1.0 / 0.6 - 0.9 cm LVPW Diastolic Thickness 1.5 cm 0.6 - 1.0 / 0.6 - 0.9 cm LV Relative Wall Thickness 0.7 RV Internal Dim ED PLAX 3.5 cm LVOT Diameter 2.0 cm LA Systolic Diameter LX 3.6 cm 3.0 - 4.0 / 2.7 - 3.8 cm M-MODE Aortic Root Diameter MM 3.3 cm LA Systolic Diameter MM 3.9 cm LA Ao Ratio MM 1.2 AV Cusp Separation MM 2.8 cm DOPPLER AV Peak Velocity 97.7 cm/s AV Peak Gradient 3.8 mmHg LVOT Peak Velocity 85.9 cm/s LVOT Peak Gradient 3.0 mmHg AV Area Cont Eq pk 2.8 cm MV Area PHT 4.9 cm Mitral E Point Velocity 78.0 cm/s Mitral A Point Velocity 65.2 cm/s Mitral E to A Ratio 1.2 TR Peak Velocity 305.0 cm/s TR Peak Gradient 37.2 mmHg Right Atrial Pressure 10.0 mmHg Pulmonary Artery Systolic Pressu 47.2 mmHg Right Ventricular Systolic Press 47.2 mmHg PV Peak Velocity 84.2 cm/s PV Peak Gradient 2.8 mmHg FINDINGS LEFT VENTRICLE The left ventricular systolic function is normal with an estimated ejection fraction in the range of 55-60%. Normal left ventricular size. Moderate concentric left ventricular hypertrophy. No regional wall motion abnormalities are present. There is a flattened septum in systole consistent with right ventricle pressure overload. RIGHT VENTRICLE The right ventricle is severely dilated. The right ventricular systoilc function is moderately decreased. Questionable echodensity noted along the RV free wall but not well seen, possible moderator band, cl inical correlation as possible LEFT ATRIUM The left atrial size is normal. RIGHT ATRIUM The right atrial size is severely dilated. ATRIAL SEPTUM Normal atrial septal thickness without atrial level shunting by limited color doppler interrogation. AORTA The aortic root and proximal ascending aorta are normal in size on limited imaging. MITRAL VALVE Trace mitral valve regurgitation. Mild thickening of the mitral valve leaflets. AORTIC VALVE Trileaflet aortic valve. No aortic valve stenosis or regurgitation. TRICUSPID VALVE Structurally normal tricuspid valve. Mild tricuspid valve stenosis. There is trace tricuspid valve regurgitation. The estimated pulmonary arterial pressure is 47.2 mmHg. PULMONARY VALVE Mild pulmonary valve regurgitation. VESSELS The inferior vena cava is normal in size. PERICARDIUM No pericardial effusion. Harpreet Galvez DO (Electronically Signed) Final Date:21 May 2017 18:15 Amended: 21 May 2017 18:30
[2017-05-21] MEDS: SODIUM CHLORIDE 0.9% FLUSH 10 ML FLUSH IVF PRN (20:28)
[2017-05-21] MEDS ORDERED: INSULIN DETEMIR 100 UNITS/ML VIAL SQ SCH (21:00)
--- NOTE | 2017-05-21 21:37 | RADRPT ---
EXAM DATE/TIME: 05/21/2017 20:37 [facility] COMPARISON: No previous studies available for comparison. INDICATIONS : Pulmonary embolism. MEDICAL HISTORY : Diabetes mellitus type 1. Hypercholesterolemia. Sleep apnea. Varicose veins. SURGICAL HISTORY : Appendectomy. ENCOUNTER: Initial ACUITY: 1 day PAIN SCORE: 0/10 LOCATION: Bilateral legs. TECHNIQUE: Venous ultrasound of the left and right leg was performed from the inguinal ligament to the proximal calf. Real-time, color Doppler and spectral tracing, compression and augmentation techniques were us ed. FINDINGS: There is no evidence of deep venous thrombosis within the right lower extremity. There is occlusive deep venous thrombosis within the left mid and distal superficial femoral, popliteal, peroneal and po sterior tibial veins. CONCLUSION: 1. Occlusive deep venous thrombus within the left mid and superficial femoral, popliteal, peroneal a nd posterior tibial veins. Lionel Zhong MD on May 21, 2017 at 21:27 Board Certified Radiologist. This report was verified electronically.
[2017-05-22] VITALS (16 sets, daily range): BP systolic 125–150; BP diastolic 65–90; PULSE 81–102; RESP 16–21; TEMP 97.2–99.1; O2SAT 95–100
[2017-05-22 00:24] LABS: APTT (PATIENT) 38.3 SEC (24.3-30.1)
[2017-05-22] MEDS: RESP: ALBUTEROL 2.5 MG/IPRATROPIUM 0.5 MG NEB (SCH) INH ×4 (03:28→21:28)
[2017-05-22] MEDS: CHLORHEXIDINE GLUCONATE 2 % 1 PACK (2 CLOTHS) TOP SCH (04:00)
[2017-05-22 05:42] LABS: AUTOMATED NEUTROPHIL # 6.2 TH/MM3 (1.8-7.7); BASOPHIL % 0.4 % (0.0-2.0); EOSINOPHIL # 0.4 TH/MM3 (0-0.4); EOSINOPHIL % 3.9 % (0.0-4.0); HEMATOCRIT 42.6 % (39.0-51.0); HEMO FLAGS DIFF FINAL; LYMPH % 33.1 % (9.0-44.0); LYMPHOCYTE # 3.8 TH/MM3 (1.0-4.8); MEAN CELL VOLUME 84.5 FL (80.0-100.0); MEAN CORPUSCULAR HEMOGLOBIN 28.4 PG (27.0-34.0); MEAN CORPUSCULAR HGB CONC 33.6 % (32.0-36.0); MONO % 8.3 % (0.0-8.0); NEUT % 54.3 % (16.0-70.0); PLATELET COUNT 133 TH/MM3 (150-450); RED BLOOD COUNT 5.04 MIL/MM3 (4.50-5.90); RED CELL DISTRIBUTION WIDTH 13.4 % (11.6-17.2); WHITE BLOOD COUNT 11.4 TH/MM3 (4.0-11.0)
[2017-05-22 05:45] LABS: APTT (PATIENT) 36.5 SEC (24.3-30.1)
[2017-05-22 05:57] LABS: ANION GAP 8 MEQ/L (5-15); AST (GOT) 22 U/L (15-37); BICARBONATE 26.8 MEQ/L (21.0-32.0); BLOOD UREA NITROGEN 11 MG/DL (7-18); CHLORIDE 102 MEQ/L (98-107); GLOMERULAR FILTRATION RATE 138 ML/MIN (>89); MAGNESIUM 1.8 MG/DL (1.5-2.5); POTASSIUM 3.6 MEQ/L (3.5-5.1); SODIUM (NA) 137 MEQ/L (136-145)
[2017-05-22 05:59] LABS: ALT (GPT) 38 U/L (12-78)
[2017-05-22 06:00] LABS: ALKALINE PHOSPHATASE 88 U/L (45-117); TOTAL BILIRUBIN ADULT 0.4 MG/DL (0.2-1.0)
[2017-05-22] MEDS: INSULIN NovoLIN REGULAR SUPPLEMENTAL SCALE SQ SCH ×2 (06:00→11:49)
[2017-05-22] MEDS: FAMOTIDINE 20 MG/2 ML VIAL IV PUSH SCH (08:55)
[2017-05-22] MEDS: DOCUSATE SODIUM 50 MG/SENNA 8.6 MG TAB PO SCH ×2 (08:55→20:21)
[2017-05-22] MEDS: HEPARIN-D5W 25,000 U/250 ML 250 ML IV PRN (11:54)
[2017-05-22 12:56] LABS: APTT (PATIENT) 43.2 SEC (24.3-30.1)
[2017-05-22] MEDS ORDERED: GLUCAGON 1 MG/ML VIAL OTHER PRN (13:45)
--- NOTE | 2017-05-22 13:54 | HHI.PR ---
Subjective Remarks Follow-up PE and DVT. Denies chest pain and shortness of breath. According to mother, patient not physically active. No family history of PE or DVT. Family and patient prefer Eliquis. Case discussed with critical care medicine and pulmonary. Objective Vitals Vital Signs Date Time Temp Pulse Resp B/P (MAP) Pulse Ox O2 Delivery O2 Flow Rate FiO2 05/22/17 12:00 81 05/22/17 12:00 97.2 81 18 125/65 (85) 97 05/22/17 08:00 97.6 84 16 148/67 (94) 99 05/22/17 08:00 99 Nasal Cannula 2.00 05/22/17 08:00 84 05/22/17 07:41 100 Nasal Cannula 3.00 05/22/17 06:00 85 05/22/17 04:00 98.3 81 21 150/81 (104) 95 05/22/17 04:00 81 05/22/17 02:00 90 05/22/17 00:00 98.2 85 20 132/78 (96) 96 05/22/17 00:00 93 05/21/17 22:00 98 05/21/17 21:00 95 132/63 (86) 05/21/17 20:37 97 21 05/21/17 20:00 93 05/21/17 20:00 97.8 95 24 160/66 (97) 95 05/21/17 19:00 96 Room Air 05/21/17 18:00 94 05/21/17 16:00 89 05/21/17 16:00 98.7 89 17 150/83 (105) 95 05/21/17 14:00 90 I/O 05/21/17 05/21/17 05/21/17 05/22/17 05/22/17 05/22/17 07:00 15:00 23:00 07:00 15:00 23:00 Intake Total 321 ml 805 ml 474 ml Output Total 400 ml 1500 ml 850 ml Balance -79 ml -695 ml -376 ml Intake Oral 200 ml 600 ml 240 ml IV Total 121 ml 205 ml 234 ml Output Urine Total 400 ml 1500 ml 850 ml # Voids 1 2 Result Diagram: 05/22/17 0413 05/22/17 0413 Imaging Last Impressions Lower Extremity Ultrasound 05/21/17 0000 Signed Impressions: Service Date/Time: Sunday, May 21, 2017 20:37 - CONCLUSION: 1. Occlusive deep venous thrombus within the left mid and superficial femoral, popliteal, peroneal and posterior tibial veins. Lionel Zhong MD Chest X-Ray 05/20/17 2019 Signed Impressions: Service Date/Time: April 21:56 - CONCLUSION: Clear lungs. Van Owens MD CT Angiography 05/20/17 0000 Signed Impressions: Service Date/Time: April 21:36 - CONCLUSION: Massive bilateral pulmonary emboli with associated right ventricular strain. Findings discussed with Dr. Fraser by phone. Van Owens MD Objective Remarks Well-developed obese in no distress on 2 L nasal cannula Pupils equal and reactive to light not jaundiced Neck no JVD and no bruit Equal in expansion clear to auscultation Regular rate and rhythm Abdomen soft nontender Extremities no edemacyanosis Alert and oriented nonfocal Procedures None A/P Problem List: (1) Pulmonary embolism ICD Code: I26.99 - Other pulmonary embolism without acute cor pulmonale Status: Acute Assessment and Plan 42-year-old morbidly obese male with venous thromboembolism risks of obesity and sedentary lifestyle who presents with submassive pulmonary embolism with evidence of RV strain. Acute Submassive Pulmonary Embolism and DVT Acute Right Heart Dysfunction Acute hypoxic Respiratory Failure - Stable tolerating nasal cannula - s/p 50mg iv TPA - heparin drip, no bolus will be discontinued at 8 PM tonight and then start Eliquis 10 mg twice a day for 7 days then 500 g twice a day - unlikely to be ACS: RV strain and EKG as well as biomarkers all consistent with acute submassive PE. - Get pulmonary input - wean o2 by [place] for goal spo2 > 90% - heart healthy diet as tolerated - PT. OOB 24 hrs after eliquis Diabetes mellitus. Uncontrolled -Adjust SQ Levemir per glycemic trends. Monitor fingersticks with sliding scale coverage Prophylaxis - SCDs, heparin drip, pepcid. Sunil Lea MD May 22, 2017 13:54
[2017-05-22] MEDS ORDERED: APIX5TAB PO ×2 (13:56→13:57)
--- NOTE | 2017-05-22 13:57 | HHI.DCPOC ---
Discharge Care Plan Diagnosis: (1) Pulmonary embolism Your Health Problems Are: Difficulty with ADL Exercise Tolerance Goals to Promote Your Health * To prevent worsening of your condition and complications * To maintain your health at the optimal level Directions to Meet Your Goals Take your medications as prescribed Follow your dietary instruction Follow activity as directed Keep your appointments as scheduled Take your immunizations and boosters as scheduled If your symptoms worsen call your PCP, if no PCP go to Urgent Care Center or Emergency Room Smoking is Dangerous to Your Health. Avoid second hand smoke Call the 24-hour hour crisis hotline for domestic abuse at Sunil Lea MD May 22, 2017 13:57
[2017-05-22] MEDS: INSULIN ASPART SUPPLEMENTAL SCALE SQ SCH ×2 (17:00→20:32)
[2017-05-22] MEDS: APIXABAN 5 MG TABLET PO SCH (20:21)
[2017-05-22] MEDS: INSULIN DETEMIR 100 UNITS/ML VIAL SQ SCH (20:33)
[2017-05-23] VITALS (30 sets, daily range): BP systolic 125–155; BP diastolic 70–89; PULSE 70–114; RESP 17–20; TEMP 97.1–98.3; O2SAT 94–98
[2017-05-23] MEDS: CHLORHEXIDINE GLUCONATE 2 % 1 PACK (2 CLOTHS) TOP SCH (00:17)
[2017-05-23] MEDS: RESP: ALBUTEROL 2.5 MG/IPRATROPIUM 0.5 MG NEB (SCH) INH ×4 (03:41→20:01)
[2017-05-23 06:32] LABS: MEAN CELL VOLUME 84.6 FL (80.0-100.0); MEAN CORPUSCULAR HEMOGLOBIN 28.2 PG (27.0-34.0); MEAN CORPUSCULAR HGB CONC 33.3 % (32.0-36.0); PLATELET COUNT 144 TH/MM3 (150-450); RED CELL DISTRIBUTION WIDTH 13.7 % (11.6-17.2); REVIEW FLAG FINAL
[2017-05-23 06:42] LABS: BICARBONATE 27.3 MEQ/L (21.0-32.0); POTASSIUM 3.7 MEQ/L (3.5-5.1)
[2017-05-23] MEDS: INSULIN ASPART SUPPLEMENTAL SCALE SQ SCH ×4 (08:00→20:59)
[2017-05-23] MEDS: APIXABAN 5 MG TABLET PO SCH ×2 (08:35→20:57)
[2017-05-23] MEDS: DOCUSATE SODIUM 50 MG/SENNA 8.6 MG TAB PO SCH ×2 (08:35→20:57)
--- NOTE | 2017-05-23 10:19 | HHI.PR ---
Subjective Remarks Follow-up PE. Symptomatic no chest pain and shortness of breath. No bleeding on Eliquis. Discussed with RN Objective Vitals Vital Signs Date Time Temp Pulse Resp B/P (MAP) Pulse Ox O2 Delivery O2 Flow Rate FiO2 05/23/17 09:00 86 05/23/17 08:30 97 Nasal Cannula 2.00 05/23/17 08:00 86 05/23/17 07:00 97.7 85 20 139/82 (101) 97 05/23/17 07:00 70 05/23/17 07:00 Nasal Cannula 2.00 05/23/17 06:00 80 05/23/17 05:00 82 05/23/17 04:12 90 20 130/70 (90) 98 05/23/17 04:00 86 05/23/17 03:00 85 05/23/17 02:00 86 05/23/17 01:00 98 05/23/17 00:06 97.8 87 17 155/87 (109) 97 05/23/17 00:00 92 05/22/17 23:03 88 05/22/17 22:40 90 05/22/17 21:36 101 05/22/17 21:30 96 Nasal Cannula 2.00 05/22/17 20:25 81 05/22/17 20:25 99.1 90 18 138/82 (100) 97 05/22/17 19:58 94 05/22/17 19:58 97 Nasal Cannula 2.00 05/22/17 18:00 102 05/22/17 17:00 90 05/22/17 16:00 97.9 98 16 146/90 (108) 97 05/22/17 16:00 97 Nasal Cannula 2.00 05/22/17 16:00 82 05/22/17 12:00 81 05/22/17 12:00 97.2 81 18 125/65 (85) 97 I/O 05/22/17 05/22/17 05/22/17 05/23/17 05/23/17 05/23/17 07:00 15:00 23:00 07:00 15:00 23:00 Intake Total 474 ml 780 ml 697 ml 500 ml Output Total 850 ml 700 ml 1350 ml 1300 ml Balance -376 ml 80 ml -653 ml -800 ml Intake Oral 240 ml 780 ml 440 ml 500 ml IV Total 234 ml 257 ml Output Urine Total 850 ml 700 ml 1350 ml 1300 ml # Voids 1 # Bowel Movements 0 0 0 Result Diagram: 05/23/1754305/23/17543 Objective Remarks Well-developed obese in no distress on 2 L nasal cannula Pupils equal and reactive to light not jaundiced Neck no JVD and no bruit Equal in expansion clear to auscultation Regular rate and rhythm Abdomen soft nontender Extremities no edema or cyanosis Alert and oriented nonfocal Procedures None A/P Problem List: (1) Pulmonary embolism ICD Code: I26.99 - Other pulmonary embolism without acute cor pulmonale Status: Acute Assessment and Plan 42-year-old morbidly obese male with venous thromboembolism risks of obesity and sedentary lifestyle who presents with submassive pulmonary embolism with evidence of RV strain. Acute Submassive Pulmonary Embolism and DVT Acute Right Heart Dysfunction Acute hypoxic Respiratory Failure - Stable tolerating nasal cannula - s/p 50mg iv TPA - Status post heparin drip, continue Eliquis 10 mg twice a day for 7 days then 5 mg twice a day - unlikely to be ACS: RV strain and EKG as well as biomarkers all consistent with acute submassive PE. - wean o2 by [place] for goal spo2 > 90%. Oxygen walk test - heart healthy diet as tolerated - PT. OOB 24 hrs after eliquis which will be tonight Diabetes mellitus. Uncontrolled -Adjust SQ Levemir per glycemic trends. Monitor fingersticks with sliding scale coverage. Follow-up A1c Obesity. Weight reduction Prophylaxis - SCDs, heparin drip, pepcid. Discharge Planning Possible discharge in the morning Sunil Lea MD May 23, 2017 10:19
[2017-05-23 11:19] LABS: HEMOGLOBIN A1a 1.8 %; HEMOGLOBIN A1b 2.5 %; HEMOGLOBIN Ao 78.7 %; HEMOGLOBIN LA1C 1.9 %; HEMOGLOBIN P3 4.2 %
--- NOTE | 2017-05-23 13:00 | HHI.FF ---
Face to Face Verification Diagnosis: (1) Pulmonary embolism Physical Therapy Order: Evaluate and Treat, Improve ambulation, Strength and gait training Home Health Nursing Order: Medical education Signs/symptoms of disease process Medication education-adverse effect Nursing assessment with vital signs I have seen patient Lionel Corrigan on 05/23/17. My clinical findings support the need for the requested home health care services because: Patient has SOB I certify that my clinical findings support that this patient is homebound because: Unsteady gait/balance Unsafe to leave home unassisted Need for psychosocial assistance Sunil Lea MD May 23, 2017 13:00
[2017-05-23] MEDS: SODIUM CHLORIDE 0.9% FLUSH 10 ML FLUSH IVF PRN (20:58)
[2017-05-23] MEDS: INSULIN DETEMIR 100 UNITS/ML VIAL SQ SCH (21:01)
[2017-05-24] VITALS (16 sets, daily range): BP systolic 127–158; BP diastolic 76–88; PULSE 85–102; RESP 18–20; TEMP 97.8–97.9; O2SAT 94–97
[2017-05-24] MEDS: CHLORHEXIDINE GLUCONATE 2 % 1 PACK (2 CLOTHS) TOP SCH (04:00)
[2017-05-24] MEDS: RESP: ALBUTEROL 2.5 MG/IPRATROPIUM 0.5 MG NEB (SCH) INH ×2 (04:17→09:46)
[2017-05-24 06:42] LABS: HEMATOCRIT 45.2 % (39.0-51.0); MEAN CELL VOLUME 84.9 FL (80.0-100.0); MEAN CORPUSCULAR HEMOGLOBIN 28.7 PG (27.0-34.0); MEAN CORPUSCULAR HGB CONC 33.8 % (32.0-36.0); PLATELET COUNT 152 TH/MM3 (150-450); RED BLOOD COUNT 5.32 MIL/MM3 (4.50-5.90); RED CELL DISTRIBUTION WIDTH 13.5 % (11.6-17.2); WHITE BLOOD COUNT 13.1 TH/MM3 (4.0-11.0)
[2017-05-24 06:48] LABS: REVIEW FLAG FINAL
[2017-05-24 07:18] LABS: BICARBONATE 25.8 MEQ/L (21.0-32.0); POTASSIUM 3.8 MEQ/L (3.5-5.1)
[2017-05-24] MEDS: INSULIN ASPART SUPPLEMENTAL SCALE SQ SCH ×2 (08:14→11:32)
[2017-05-24] MEDS: APIXABAN 5 MG TABLET PO SCH (08:15)
[2017-05-24] MEDS: DOCUSATE SODIUM 50 MG/SENNA 8.6 MG TAB PO SCH (08:15)
--- NOTE | 2017-05-24 13:44 | HHI.DS ---
Discharge Summary Admission Date May 20, 2017 at 22:02 Discharge Date: May 24, 2017 Admitting Diagnosis Pulmonary Embolism (1) Pulmonary embolism ICD Code: I26.99 - Other pulmonary embolism without acute cor pulmonale Diagnosis: Principal Status: Acute Procedures None Brief History - From Admission This is a 42yM with history of IDDM and morbid obesity who presents to the ER with complaints of worsening SOB today. He does state that possibly his dyspnea started a few days ago, but acutely became worse today. Denies chest pain, fever , chills, sputum production. does still actively smoke. No other associated symptoms. He endorses, along with his mother at bedside, that he spends most of his night laying sedentary on his couch, and sleeps most of the day, so he is very inactive and spends long hours immobilized. In the ER was found to have near-saddle pulmonary embolism with EKG evidence of RV strain along with elevated biomarkers for cardiac strain. After a discussion with the patient, Dr. Fraser in the ER and myself, decision to give TPA for Submassive PE and the patient was emergently transferred to the [facility]. CBC/BMP: 05/24/17 0430 05/24/17 0430 Significant Findings Laboratory Tests Test 05/21/17 17:18 05/21/17 23:55 05/22/17 04:13 05/22/17 04:15 Activated Partial Thromboplast Time 44.9 SEC (24.3-30.1) 38.3 SEC (24.3-30.1) 36.5 SEC (24.3-30.1) Troponin I 0.61 NG/ML (0.02-0.05) White Blood Count 11.4 TH/MM3 (4.0-11.0) Platelet Count 133 TH/MM3 (150-450) Monocytes (%) (Auto) 8.3 % (0.0-8.0) Random Glucose 202 MG/DL (74-106) Albumin 3.2 GM/DL (3.4-5.0) Hemoglobin A1c 10.6 % (4.3-6.0) Test 05/22/17 12:38 05/23/17 05:44 05/24/17 04:30 Activated Partial Thromboplast Time 43.2 SEC (24.3-30.1) Platelet Count 144 TH/MM3 (150-450) Random Glucose 189 MG/DL (74-106) 196 MG/DL (74-106) White Blood Count 13.1 TH/MM3 (4.0-11.0) Creatinine 0.58 MG/DL (0.60-1.30) Sodium Level 134 MEQ/L (136-145) Imaging Last Impressions Lower Extremity Ultrasound 05/21/17 0000 Signed Impressions: Service Date/Time: Sunday, May 21, 2017 20:37 - CONCLUSION: 1. Occlusive deep venous thrombus within the left mid and superficial femoral, popliteal, peroneal and posterior tibial veins. Lionel Zhong MD Chest X-Ray 05/20/172018 Signed Impressions: Service Date/Time: April 21:56 - CONCLUSION: Clear lungs. Van Owens MD CT Angiography 05/20/17 0000 Signed Impressions: Service Date/Time: April 21:36 - CONCLUSION: Massive bilateral pulmonary emboli with associated right ventricular strain. Findings discussed with Dr. Fraser by phone. Van Owens MD PE at Discharge Well-developed obese in no distress on 2 L nasal cannula Pupils equal and reactive to light not jaundiced Neck no JVD and no bruit Equal in expansion clear to auscultation Regular rate and rhythm Abdomen soft nontender Extremities no edema or cyanosis Alert and oriented nonfocal Hospital Course 42-year-old morbidly obese male with venous thromboembolism risks of obesity and sedentary lifestyle who presents with submassive pulmonary embolism with evidence of RV strain. Acute Submassive Pulmonary Embolism and DVT Acute Right Heart Dysfunction Acute hypoxic Respiratory Failure - Stable - s/p 50mg iv TPA - Status post heparin drip, continue Eliquis 10 mg twice a day for 7 days til 9/ 30 am then 5 mg twice a day - unlikely to be ACS: RV strain and EKG as well as biomarkers all consistent with acute submassive PE. - wean o2 by NC for goal spo2 > 90%. Oxygen walk test - heart healthy diet as tolerated - PT. OOB 24 hrs after eliquis which will be tonight Diabetes mellitus. Uncontrolled -Adjust SQ Levemir per glycemic trends. Monitor fingersticks with sliding scale coverage. A1c 10. Diabetic education Obesity. Weight reduction Prophylaxis - SCDs, heparin drip/eliquis, pepcid. Pt Condition on Discharge: Stable Discharge Disposition: Disch w/ Home Health Serv Discharge Time: > 30 minutes Discharge Instructions DIET: Follow Instructions for: Heart Healthy Diet Activities you can perform: Regular-No Restrictions Activities to Avoid: Driving Follow up Referrals: PCP Follow-up - 1 Week New Medications: Apixaban (Eliquis) 5 Mg Tab 5 MG PO BID for Blood Clot Prevention, #60 TAB 0 Refills Apixaban (Eliquis) 5 Mg Tab 10 MG PO BID for Prevent Blood Clot MDD 10, #10 TAB Continued Medications: Insulin Glargine Inj (Lantus Solostar Pen Inj) 300 Unit/3 Ml Pen 1 UNITS SQ for Blood Sugar Management, PEN 0 Refills Additional Information I spent 35 minutes [id number] with the patient or on the barakat discussing the patient's disposition, prognosis, and plan of care with patient's caregivers. Over half the time spent was devoted to counseling the patient regarding placement in coordinating care with caregivers and case management. Sunil Lea MD May 24, 2017 13:44
== END 2017-05-24 13:56 | disposition home health service (06) | DRG 175 ==
LOC: PHED 19:53 → PHEDA 22:02 → N03A 23:12 → HCIN 05-22 14:38
PROVIDERS: ADMIT Internal Medicine; ATTEND Internal Medicine
DX: I26.92 Saddle embolus of pulmonary artery without acute cor pulmonale (principal); J96.01 Acute respiratory failure with hypoxia; Z68.43 Body mass index [BMI] 50.0-59.9, adult; E66.01 Morbid (severe) obesity due to excess calories; I27.2 Other secondary pulmonary hypertension; I82.412 Acute embolism and thrombosis of left femoral vein; I82.432 Acute embolism and thrombosis of left popliteal vein; I82.442 Acute embolism and thrombosis of left tibial vein; E10.9 Type 1 diabetes mellitus without complications; E78.00 Pure hypercholesterolemia, unspecified; F81.9 Developmental disorder of scholastic skills, unspecified; F17.210 Nicotine dependence, cigarettes, uncomplicated; G47.33 Obstructive sleep apnea (adult) (pediatric); Z79.4 Long term (current) use of insulin
CPT/HCPCS: 71010; 71275; 80048; 80053; 81241; 82550; 82552; 82805; 82948; 83036; 83735; 84484; 85025; 85027; 85379; 85610; 85730; 87641; 93005; 93306; 93970; 94150; 94620; 94640; 94664; 94667; 94668; 96365; 96375; J1644; J1815; J2997; J7040; Q9967